=== PATIENT | female | born 1990 | race Caucasian/White ===

== ENCOUNTER 2020-08-24 07:34 | Outpatient (CLI) | payer OTHER, SELFPAY ==
[2020-08-24 08:15] LABS: Add Urine Microscopic? NO; Appearance Urine Clear (Clear); Bilirubin Urine Negative (Negative); Blood Urine Negative (Negative); Color Urine Straw (Yellow); Glucose Urine UA Negative (Negative); Ketones Urine Negative (Negative); Leukocyte Esterase Ur Negative LEU/UL (Negative); Nitrate Urine Negative (Negative); Protein Urine Negative (Negative); Specific Grav Ur 1.012 (1.001-1.035); Urobilinogen Urine Negative mg/dL (<2.0)
[2020-08-24 08:23] LABS: Basophils Absolute Auto 0.1 K/mm3 (0.0-0.1); Basophils Percent Auto 0.9 % (0.2-1.2); Eosinophils Absolute Auto 0.1 K/mm3 (0-0.3); Eosinophils Percent Auto 1.3 % (0-4.4); Hematocrit 43.8 % (37.0-47.0); Hemoglobin 14.5 g/dL (12.0-15.0); Immature Granulocyte Absolute 0.02 K/mm3 (0.00-0.031); Immature Granulocyte Percent A 0.3 % (0-0.5); Lymphocytes Absolute Auto 2.11 K/mm3 (0.9-3.2); Lymphocytes Percent Auto 26.8 % (18.3-44.2); Mean Corpuscular HGB Conc 33.1 g/dl (32-36); Mean Corpuscular Hemoglobin 30.5 pg (26-34); Mean Corpuscular Volume 92.2 fl (80-100); Mean Platelet Volume 9.8 fl (7.4-10.4); Monocytes Absolute Auto 0.6 K/mm3 (0.1-0.6); Neutrophils Percent Auto 63.7 % (45.5-73.1); Platelet Count Result 258 k/mm3 (150-375); Red Blood Count 4.75 M/mm3 (4.2-5.4); White Blood Count 7.9 K/mm3 (4.5-10.0)
[2020-08-24 08:24] LABS: Alanine Aminotransferase 42 U/L (4-35); Albumin Level 4.5 g/dL (3.5-5.1); Alkaline Phosphatase 70 U/L (38-126); Anion Gap 8 mmol/L (8-16); Aspartate Amino Transferase 37 U/L (14-36); Bilirubin,Total 0.6 mg/dL (0.2-1.3); Blood Urea Nitrogen 13 mg/dL (7-17); Calcium 9.4 mg/dL (8.4-10.2); Carbon Dioxide 32 mmol/L (22-30); Chloride 101 mmol/L (98-107); Cholesterol 209 mg/dL (0-200); Estimated Glomerular Filt Rate > 60; Glucose 90 mg/dL (65-105); HDL Direct 47 mg/dL; Magnesium 2.1 mg/dL (1.6-2.3); Potassium 4.6 mmol/L (3.4-5.0); Sodium 141 mmol/L (137-145); Triglycerides 195 mg/dL (<150)
[2020-08-24 08:34] LABS: LDL Cholesterol Direct 134 mg/dL
[2020-08-24 08:51] LABS: Vitamin D 25 Hydroxy 39.9 ng/mL
[2020-08-24 09:32] LABS: Folic Acid > 20.0 ng/mL (2.76->20)
== END 2020-08-24 07:35 | disposition home or self-care (01) ==
PROVIDERS: PCP Family Medicine; Visit Provider Family Medicine
DX: Z00.00 Encounter for general adult medical examination without abnormal findings (principal); E66.3 Overweight; E55.9 Vitamin D deficiency, unspecified; M79.7 Fibromyalgia
CPT/HCPCS: 36415; 80053; 80061; 81003; 82306; 82607; 82746; 83036; 83735; 84443; 85025

== ENCOUNTER 2021-08-29 14:00 | Outpatient (RCR) | payer OTHER, SELFPAY ==
[2021-08-29 13:59] VITALS: BMI 30.7
[2021-08-29 14:00] VITALS: BMI 30.7
== END 2021-09-11 12:14 | disposition home or self-care (01) ==
LOC: ANHDMC 14:00
PROVIDERS: PCP Family Medicine; Visit Provider Obstetrics & Gynecology
DX: O24.319 Unspecified pre-existing diabetes mellitus in pregnancy, unspecified trimester (principal); Z3A.00 Weeks of gestation of pregnancy not specified; Z71.3 Dietary counseling and surveillance; Z71.89 Other specified counseling
CPT/HCPCS: 97802; G0108

== ENCOUNTER 2021-10-23 06:26 | Inpatient (IN) | payer OTHER, MEDICAID, SELFPAY ==
[2021-10-23] VITALS (141 sets, daily range): BP systolic 78–143; BP diastolic 40–101; PULSE 37–148; RESP 18; TEMP 36.2–36.7; O2SAT 77–100; BMI 32.1
--- NOTE | 2021-10-23 06:49 | PM.IMHP ---
H&P: HPI History of Present Illness Date/Time: 10/23/21 06:49 31-year-old 2 para 1 whose last menstrual period was 01/28/2021, EDC is 10/30/2021, presents at 39 weeks gestation for induction of labor. Her has been uncomplicated and she has an early ultrasound confirming dates. She does suffer from severe headaches and uses propranolol twice a day as well as Effexor and Botox for migraines. Eight week ultrasound confirms dates. She is negative for group B strep Chief Complaint: term for induction of labor Review of Systems Review of Systems: All systems reviewed & are unremarkable except as noted in HPI and below PMFSH Family History Family History Other No pertinent family history Social History Social History Substance use: never Spiritual care concerns: No Meds Home Medications and Allergies Home Medications Medication Instructions Recorded Confirmed Type PNV cmb#95-ferrous fumarate-FA 1 tablet PO DAILY 10/10/21 10/10/21 History [] alprazolam [Xanax] 0.25 mg PO BID PRN 10/10/21 10/10/21 History amitriptyline 75 mg PO HS 10/10/21 10/10/21 History baclofen 10 mg PO HS PRN 10/10/21 10/10/21 History gabapentin 400 mg PO TID 10/10/21 10/10/21 History hydroxyzine pamoate 25 mg PO HS 10/10/21 10/10/21 History propranolol 80 mg PO Q12H 10/10/21 10/10/21 History venlafaxine [Effexor XR] 150 mg PO DAILY 10/10/21 10/10/21 History Allergies Allergy/AdvReac Type Severity Reaction Status Date / Time tramadol Allergy Unknown Verified 10/10/21 13:55 Exam Const: General: no acute distress Eyes: General: appearance normal, both eyes and all related structures Neck: Neck: supple and no JVD Thyroid: thyroid normal Resp: Effort & Inspection: normal respiratory effort Auscultation: clear to auscultation bilaterally Cardio: Rate: regular rate Rhythm: regular rhythm GI: Inspection: non-distended GI Palp: Yes Soft to palpation, No Tenderness to palpation present (GI) and No Guarding due to palpation present (GI) Auscultation: normal bowel sounds : External Female Exam: normal external appearance Speculum Exam - Vagina: normal appearance of the vagina Speculum Exam - Cervix: normal appearance of the cervix ( cervix 2/75/1. Arom with no fluid seen yet. heart tones reassuring) Skin: General skin exam: no rashes or lesions noted Extrem: General: normal to inspection and no edema Psych: Mental Status: mental status grossly normal Affect: normal affect Assessment and Plan Additional Plan impression: Term with favorable cervix Plan: Medical induction of labor. Spontaneous vaginal delivery is expected. She has an epidural candidate
[2021-10-23 07:22] LABS: Glucose Point of Care 100 mg/dl (65-105)
[2021-10-23] MEDS: LACTATED RINGERS 1,000 ML 125 ML IV CONT ×2 (07:37→12:47)
[2021-10-23] MEDS: OXYTOCIN 30 UNITS/NS 500 ML 30 UNITS/500 ML BAG IV CONT (07:38)
[2021-10-23 07:43] LABS: Basophils Percent Auto 0.3 % (0.2-1.2); Eosinophils Absolute Auto 0.1 K/mm3 (0-0.3); Eosinophils Percent Auto 0.5 % (0-4.4); Hematocrit 41.8 % (37.0-47.0); Hemoglobin 13.8 g/dL (12.0-15.0); Immature Granulocyte Absolute 0.08 K/mm3 (0.00-0.031); Immature Granulocyte Percent A 0.7 % (0-0.5); Lymphocytes Absolute Auto 1.97 K/mm3 (0.9-3.2); Lymphocytes Percent Auto 16.3 % (18.3-44.2); Mean Corpuscular Hemoglobin 30.5 pg (26-34); Mean Corpuscular Volume 92.3 fl (80-100); Mean Platelet Volume 11.1 fl (7.4-10.4); Monocytes Absolute Auto 0.8 K/mm3 (0.1-0.6); Monocytes Percent Auto 6.9 % (2.6-8.5); Neutrophils Absolute Auto 9.1 K/mm3 (1.3-6.7); Neutrophils Percent Auto 75.3 % (45.5-73.1); Platelet Count Result 243 k/mm3 (150-375); Red Blood Count 4.53 M/mm3 (4.2-5.4); Red Cell Distribution Width 14.6 % (11.5-14.5); White Blood Count 12.1 K/mm3 (4.5-10.0)
--- NOTE | 2021-10-23 07:43 | P.PNAN_ITS ---
Anes - Eval Pre Procedure Procedure: labor epidural Date/Time: 10/23/21 07:43 Pre Op Diagnosis: IOL Patient Data Age: 31 Gender: F Height: Weight: Last Vital Signs Pulse 75 10/23/21 07:30 BP 120/73 10/23/21 07:30 Allergies Allergy/AdvReac Type Severity Reaction Status Date / Time tramadol Allergy Unknown Verified 10/10/21 13:55 Home Medications Medication Instructions Recorded Confirmed Type PNV cmb#95-ferrous fumarate-FA 1 tablet PO DAILY 10/10/21 10/10/21 History [] alprazolam [Xanax] 0.25 mg PO BID PRN 10/10/21 10/10/21 History amitriptyline 75 mg PO HS 10/10/21 10/10/21 History baclofen 10 mg PO HS PRN 10/10/21 10/10/21 History gabapentin 400 mg PO TID 10/10/21 10/10/21 History hydroxyzine pamoate 25 mg PO HS 10/10/21 10/10/21 History propranolol 80 mg PO Q12H 10/10/21 10/10/21 History venlafaxine [Effexor XR] 150 mg PO DAILY 10/10/21 10/10/21 History Laboratory Tests 10/23/21 10/23/21 10/23/21 06:50 06:50 07:18 WBC Pending RBC Pending Hgb Pending Hct Pending MCV Pending MCH Pending MCHC Pending RDW Pending Plt Count Pending MPV Pending Immature Gran % (Auto) Pending Neut % (Auto) Pending Lymph % (Auto) Pending [place] % (Auto) Pending Eos % (Auto) Pending Baso % (Auto) Pending Lymph # (Auto) Pending [place] # (Auto) Pending Eos # (Auto) Pending Baso # (Auto) Pending Abs Immat Gran (auto) Pending Absolute Neuts (auto) Pending Absolute Nucleated RBC Pending Nucleated RBC % Pending POC Capillary Glucose 100 mg/dl mg/dl (65-105) RPR Pending Patient hx anesthesia problems: none Family hx anesthesia problems: none Results Review: All pre-operative results and documents have been reviewed as part of the pre-operative evaluation. [facility] Past Medical History Medical History (Updated 01/05/22 @ 07:48 by Lynda Lewis CRNA) Anxiety Diabetes in Migraine Obese Family History Family History Other No pertinent family history Social History Social History Substance use: never Spiritual care concerns: No Exam Day of Procedure 10/23/21 07:43
--- NOTE | 2021-10-23 08:06 | LDADM ---
This patient, Abigail Vizcarra, was admitted to Labor/Delivery/Recovery 103 on 10/23/21 at 06:26. Plans for labor, pain management and were discussed with patient. Patient/family oriented to hospital policies and general routines including ID bracelet, bed and alarms, visiting hours, pain management, procedures, bathroom and other care routines, personal items, smoking policy, room service/diet and guest tray routines, infant security routines, and visiting hours. Patient/Family are encouraged to report perceived risks to care and to ask questions if they do not understand what they are told or what they should do. See OBIX for further documentation.
[2021-10-23] MEDS: VENLAFAXINE HCL XR 75 MG CAP.ER.24H 150 MG PO (09:05)
[2021-10-23 12:29] LABS: Glucose Point of Care 96 mg/dl (65-105)
[2021-10-23] MEDS: ONDANSETRON INJ 4 MG/2 ML VIAL IV PUSH (13:27)
--- NOTE | 2021-10-23 15:24 | P.PCNOB_ITS ---
OB - Delivery Note Procedure Delivery date: 10/23/21 Procedure: mil events: Gestational Diabetes Intrapartal events: None Induction method: AROM Delivery augmentation: pitocin Delivery monitor: external FHT, internal FHT and internal uterine Route of delivery: Episiotomy description: None Laceration Description: None Quantitative Blood Loss (ml): 59 Disposition: floor [place] Baby Date of : 10/23/21 Time of : 15:15 Weeks of gestation at delivery: 39 presentation: vertex position: Right Occiput Anterior Placenta delivery description: Spontaneous cord vessel description: 3 Vessels and Nuchal Cord (x2) score one minute: 8 score five minutes: 8
[2021-10-23] MEDS: IBUPROFEN 600 MG TABLET PO (17:44)
--- NOTE | 2021-10-23 18:52 | OBPPTRN ---
Patient transferred to post room #284 via wheelchair. Support person present. Oriented to unit, room, information board, rooming in, admission packet and security measures. Patient verbalizes understanding.
[2021-10-24] MEDS: IBUPROFEN 600 MG TABLET PO ×3 (02:08→16:22)
[2021-10-24 04:40] VITALS: BP 122/74; PULSE 78; RESP 16; TEMP 36.9
[2021-10-24 04:54] LABS: Hematocrit 36.4 % (37.0-47.0)
--- NOTE | 2021-10-24 07:45 | P.PNOB_ITS ---
OB - PN: Subj Subjective Date/time seen: 10/24/21 07:45 Patient comments: no complaints and pain well controlled baby status: doing well and nursing well OB - PN: Obj Data Labs CBC & Chem 7: 10/24/21 04:45 Labs: Laboratory Results - last 24 hr 10/23/21 10/23/21 10/23/21 06:50 06:50 12:25 WBC 12.1 H RBC 4.53 Hgb 13.8 Hct 41.8 MCV 92.3 MCH 30.5 MCHC 33.0 RDW 14.6 H Plt Count 243 MPV 11.1 H Immature Gran % (Auto) 0.7 H Neut % (Auto) 75.3 H Lymph % (Auto) 16.3 L [place] % (Auto) 6.9 Eos % (Auto) 0.5 Baso % (Auto) 0.3 Lymph # (Auto) 1.97 [place] # (Auto) 0.8 H Eos # (Auto) 0.1 Baso # (Auto) 0.0 Abs Immat Gran (auto) 0.08 H Absolute Neuts (auto) 9.1 H Absolute Nucleated RBC 0.0 Nucleated RBC % 0.0 POC Capillary Glucose 96 Blood Type O Positive Antibody Screen Negative 10/24/21 04:45 WBC RBC Hgb 12.0 Hct 36.4 L MCV MCH MCHC RDW Plt Count MPV Immature Gran % (Auto) Neut % (Auto) Lymph % (Auto) [place] % (Auto) Eos % (Auto) Baso % (Auto) Lymph # (Auto) [place] # (Auto) Eos # (Auto) Baso # (Auto) Abs Immat Gran (auto) Absolute Neuts (auto) Absolute Nucleated RBC Nucleated RBC % POC Capillary Glucose Blood Type Antibody Screen OB - PN A/P Plan day: 1 Plan: routine care Time Spent With Patient Time: Total time spent is greater than 50% in coordination of care (as documented) at patient's floor/unit and/or counseling patient: Time with patient: less than 15 minutes Review of Systems Review of Systems: All systems reviewed & are unremarkable except as noted in HPI and below Exam Const: General: no acute distress Eyes: General: appearance normal, both eyes and all related structures Neck: Neck: supple and no JVD Thyroid: thyroid normal Resp: Effort & Inspection: normal respiratory effort Auscultation: clear to auscultation bilaterally Cardio: Rate: regular rate Rhythm: regular rhythm GI: Inspection: non-distended GI Palp: Yes Soft to palpation, No Tenderness to palpation present (GI) and No Guarding due to palpation present (GI) Auscultation: normal bowel sounds : General: Yes bladder normal to palpation External Female Exam: normal external appearance Speculum Exam - Vagina: normal vaginal discharge and No vaginal bleeding Speculum Exam - Cervix: nontender Bimanual exam- vagina & uterus: bladder normal to palpation and No Cervical tenderness present OB/external & speculum: No vaginal bleeding Skin: General skin exam: no rashes or lesions noted Extrem: General: normal to inspection and no edema Psych: Mental Status: mental status grossly normal Affect: normal affect
[2021-10-24] MEDS: DOCUSATE SODIUM 100 MG CAPSULE PO (08:43)
[2021-10-24 08:45] VITALS: BP 109/56; PULSE 68; RESP 16; TEMP 36.3
[2021-10-24] MEDS: VENLAFAXINE HCL XR 75 MG CAP.ER.24H 150 MG PO (09:00)
--- NOTE | 2021-10-24 10:49 | WPDANLDPN2 ---
Anes-Prog Note L&D Date/Time: 10/24/21 10:49 Comfortable throughout: labor and delivery Neuraxial method: epidural Epidural/Spinal procedure site: clean & non-tender Neuro status: Neuro function grossly intact. Cardiovascular status: normal Respiratory status: normal Airway patency: baseline Mental status: baseline Post-Op hydration status: normal Vital Signs: Last Vital Signs Temp 36.3 C L 10/24/21 08:45 Pulse 68 10/24/21 08:45 Resp 16 10/24/21 08:45 BP 109/56 L 10/24/21 08:45 Pulse Ox 100 10/23/21 15:08 Pain score (VAS): 10/28 Post-procedural complaints: none Patient feedback: Patient satisfied with anesthetic care.
[2021-10-24] MEDS: ACETAMINOPHEN 325 MG TABLET 650 MG PO (12:29)
[2021-10-24 12:30] VITALS: BP 108/54; PULSE 77; RESP 16; TEMP 36.1
[2021-10-24 13:58] LABS: Rapid Plasma Reagin Non-Reactive (NonReactive)
[2021-10-24 19:30] VITALS: BP 108/66; PULSE 95; RESP 16; TEMP 36.9
[2021-10-25] MEDS: IBUPROFEN 600 MG TABLET PO ×2 (00:37→08:15)
--- NOTE | 2021-10-25 07:31 | PM.DS ---
DS: Admitting Diagnosis Discharge Date 10/25/2021 Admitting Diagnosis term DS: Summary Hospital Course Hospital Course: patient was admitted for induction of labor. She underwent an unremarkable procedure. Her hospital course was unremarkable she remained afebrile and was up ambulating generally without complaints. Time Spent with Patient Time attestation: Total time spent providing and/or coordinating discharge services: Exam Const: General: no acute distress Eyes: General: appearance normal, both eyes and all related structures Neck: Neck: supple and no JVD Thyroid: thyroid normal Resp: Effort & Inspection: normal respiratory effort Auscultation: clear to auscultation bilaterally Cardio: Rate: regular rate Rhythm: regular rhythm GI: Inspection: non-distended GI Palp: Yes Soft to palpation, No Tenderness to palpation present (GI) and No Guarding due to palpation present (GI) Auscultation: normal bowel sounds : General: Yes bladder normal to palpation External Female Exam: normal external appearance Speculum Exam - Vagina: normal vaginal discharge and No vaginal bleeding Speculum Exam - Cervix: nontender Bimanual exam- vagina & uterus: bladder normal to palpation and No Cervical tenderness present OB/external & speculum: No vaginal bleeding Skin: General skin exam: no rashes or lesions noted Extrem: General: normal to inspection and no edema Psych: Mental Status: mental status grossly normal Affect: normal affect DS: Data Data Completed and Pending Labs on day of discharge: Labs from last 24 hours 10/23/21 06:50 RPR Non-reactive Discharge Plan Discharge Attending physician on discharge: Anant Hudson Discharging Clinician: Anant Hudson Patient Disposition: Home, Self-Care Activity: may shower, no straining and pelvic rest Diet: heart healthy Patient Instructions: Antibiotic Form Stand Alone Forms: General Discharge Information Follow-up/Referrals: Anant Hudson MD [Physician] - Discharge Medications: Continued propranolol 80 mg Tablet 80 mg PO Q12H RF: 0 amitriptyline 75 mg Tablet 75 mg PO HS RF: 0 venlafaxine [Effexor XR] 150 mg Capsule,Extended Release 24hr 150 mg PO DAILY RF: 0 alprazolam [Xanax] 0.25 mg Tablet 0.25 mg PO BID PRN (Reason: Anxiety) RF: 0 baclofen 10 mg Tablet 10 mg PO HS PRN (Reason: Muscle Spasm) RF: 0 hydroxyzine pamoate 25 mg Capsule 25 mg PO HS RF: 0 gabapentin 400 mg Tablet 400 mg PO TID RF: 0 PNV cmb#95-ferrous fumarate-FA [] 28 mg iron- 800 mcg Tablet 1 tablet PO DAILY RF: 0 Date of admission: 10/23/21 06:26 Primary Care Provider: Rob,[facility] Admitting Provider: Anant Hudson Attending physician on admission: Anant Hudson Condition: Stable
--- NOTE | 2021-10-25 07:32 | PM.OBPNVD ---
OB - PN: Subj Subjective Date/time seen: 10/25/21 07:32 Patient comments: no complaints and pain well controlled baby status: doing well and nursing well OB - PN: Obj Data Labs CBC & Chem 7: 10/24/21 04:45 Labs: Laboratory Results - last 24 hr 10/23/21 06:50 RPR Non-reactive OB - PN A/P Plan day: 1 Plan: routine care, discharge home and follow up 6 weeks Time Spent With Patient Time: Total time spent is greater than 50% in coordination of care (as documented) at patient's floor/unit and/or counseling patient: Time with patient: less than 15 minutes Review of Systems Review of Systems: All systems reviewed & are unremarkable except as noted in HPI and below Exam Const: General: no acute distress Eyes: General: appearance normal, both eyes and all related structures Neck: Neck: supple and no JVD Thyroid: thyroid normal Resp: Effort & Inspection: normal respiratory effort Auscultation: clear to auscultation bilaterally Cardio: Rate: regular rate Rhythm: regular rhythm GI: Inspection: non-distended GI Palp: Yes Soft to palpation, No Tenderness to palpation present (GI) and No Guarding due to palpation present (GI) Auscultation: normal bowel sounds : General: Yes bladder normal to palpation External Female Exam: normal external appearance Speculum Exam - Vagina: normal vaginal discharge and No vaginal bleeding Speculum Exam - Cervix: nontender Bimanual exam- vagina & uterus: bladder normal to palpation and No Cervical tenderness present OB/external & speculum: No vaginal bleeding Skin: General skin exam: no rashes or lesions noted Extrem: General: normal to inspection and no edema Psych: Mental Status: mental status grossly normal Affect: normal affect
[2021-10-25 08:00] VITALS: BP 112/70; PULSE 74; RESP 18; TEMP 36.6
[2021-10-25] MEDS: WITCH HAZEL 40 PADS 1 PAD TOPICAL (08:14)
[2021-10-25] MEDS: BENZOCAINE 20% AER SPR (*SP) 56 GM CAN 1 SPRAY TOPICAL (08:14)
[2021-10-25] MEDS: DOCUSATE SODIUM 100 MG CAPSULE PO (08:15)
[2021-10-25] MEDS: VENLAFAXINE HCL XR 75 MG CAP.ER.24H 150 MG PO (08:16)
--- NOTE | 2021-10-25 09:00 | PC.NURSE ---
Patient was given the opportunity to view the discharge video Mother & Baby Care, The First Two Weeks and to ask questions. Patient declined viewing the video and has been given the mother/baby guide for home reference.
--- NOTE | 2021-10-25 10:26 | PC.NURSE ---
Self care and infant care discharge instructions given including follow up visit date and time. Mother verbalized understanding. No questions or concerns voiced. Very pleasant and cooperative. FOB at side.
[2021-10-26 10:28] VITALS: BP 116/61; PULSE 75; RESP 20; TEMP 36.9; O2SAT 100
== END 2021-10-25 12:22 | disposition home or self-care (01) | DRG 807 ==
LOC: ANHLDR 06:29 → ANHOB2 19:18
PROVIDERS: Admitting Provider Obstetrics & Gynecology; PCP Family Medicine; Visit Provider Obstetrics & Gynecology
DX: O24.429 Gestational diabetes mellitus in childbirth, unspecified control (principal); Z37.0 Single live birth; O69.81X0 Labor and delivery complicated by cord around neck, without compression, not applicable or unspecified; O77.0 Labor and delivery complicated by meconium in amniotic fluid; O76 Abnormality in fetal heart rate and rhythm complicating labor and delivery; Z3A.39 39 weeks gestation of pregnancy
CPT/HCPCS: 36415; 82948; 85014; 85018; 85025; 86592; 86850; 86900; 86901; A9270; J2405; J2590; J2795; J7120

== ENCOUNTER 2022-09-09 11:00 | Outpatient (CLI) | payer OTHER, MEDICAID, SELFPAY ==
[2022-09-09 11:35] LABS: Basophils Absolute Auto 0.1 K/mm3 (0.0-0.1); Basophils Percent Auto 0.7 % (0.2-1.2); Eosinophils Absolute Auto 0.1 K/mm3 (0-0.3); Eosinophils Percent Auto 0.7 % (0-4.4); Hematocrit 42.8 % (37.0-47.0); Hemoglobin 14.4 g/dL (12.0-15.0); Immature Granulocyte Absolute 0.02 K/mm3 (0.00-0.031); Immature Granulocyte Percent A 0.3 % (0-0.5); Lymphocytes Absolute Auto 1.88 K/mm3 (0.9-3.2); Lymphocytes Percent Auto 27.9 % (18.3-44.2); Mean Corpuscular HGB Conc 33.6 g/dl (32-36); Mean Corpuscular Hemoglobin 30.6 pg (26-34); Mean Corpuscular Volume 91.1 fl (80-100); Mean Platelet Volume 10.2 fl (7.4-10.4); Monocytes Absolute Auto 0.5 K/mm3 (0.1-0.6); Monocytes Percent Auto 6.8 % (2.6-8.5); Neutrophils Absolute Auto 4.3 K/mm3 (1.3-6.7); Neutrophils Percent Auto 63.6 % (45.5-73.1); Platelet Count Result 242 k/mm3 (150-375); Red Cell Distribution Width 13.2 % (11.5-14.5); White Blood Count 6.8 K/mm3 (4.5-10.0)
[2022-09-09 11:46] LABS: Alanine Aminotransferase 30 U/L (6-35); Albumin Level 4.5 g/dL (3.5-5.1); Alkaline Phosphatase 65 U/L (38-126); Anion Gap 6 mmol/L (8-16); Aspartate Amino Transferase 27 U/L (14-36); Bilirubin,Total 0.6 mg/dL (0.2-1.3); Blood Urea Nitrogen 9 mg/dL (7-17); CRP < 0.5 mg/dL (<1.0); Calcium 8.8 mg/dL (8.4-10.2); Carbon Dioxide 26 mmol/L (22-30); Chloride 104 mmol/L (98-107); Estimated Glomerular Filt Rate > 60; Glucose 86 mg/dL (65-110); Lipase 64 U/L (23-300); Potassium 3.8 mmol/L (3.4-5.0); Sodium 136 mmol/L (137-145)
[2022-09-09 13:28] LABS: Erythrocyte Sedimentation Rate 6 mm/hr (0-20)
[2022-09-19 09:49] LABS: Gliadin AB, IgG <1.0 U/mL (<15.0); TTG IGA AB <1.0 U/mL (<15.0)
== END 2022-09-09 11:01 | disposition home or self-care (01) ==
PROVIDERS: PCP Family Medicine
DX: R10.9 Unspecified abdominal pain (principal); K59.09 Other constipation; M79.7 Fibromyalgia; G43.009 Migraine without aura, not intractable, without status migrainosus
CPT/HCPCS: 36415; 80053; 83516; 83690; 84443; 85025; 85652; 86038; 86140; 86255